=== PATIENT | female | born 1960 | race Two or more races ===

== ENCOUNTER 2017-05-22 09:10 | Inpatient (IN) | payer OTHER ==
[~2017-05-22] VITALS: Ht 157.5 cm; Wt 72.5 kg
[2017-05-22] VITALS (7 sets, daily range): BP systolic 100–132; BP diastolic 34–64
[2017-05-22] MEDS ORDERED: AMLO-512 PO (09:16)
[2017-05-22] MEDS ORDERED: OMEP20 PO (09:16)
[2017-05-22] MEDS ORDERED: DDAV1 PO (09:16)
[2017-05-22] MEDS ORDERED: PRED1 PO (09:16)
[2017-05-22] MEDS ORDERED: LOSA50TA37 PO (09:16)
[2017-05-22] MEDS ORDERED: LEVO88TA4 PO (09:16)
[2017-05-22 10:11] LABS: BILIRUBIN,URINE NEGATIVE (NEGATIVE); GLUCOSE, URINE (UA) NEGATIVE (NEGATIVE); KETONES,URINE NEGATIVE (NEGATIVE); LEUKOCYTE ESTERASE ,URINE NEGATIVE (NEGATIVE); NITRATE,URINE NEGATIVE (NEGATIVE); OCCULT BLOOD,URINE MODERATE (NEGATIVE); PH,URINE 7.5 (5.0-8.0); PROTEIN,URINE POS 1+ (NEGATIVE)
[2017-05-22] MEDS ORDERED: SODIUM CHLORIDE 0.9% 1,000 ML IV ONE ×2 (10:15)
[2017-05-22] MEDS ORDERED: ACETAMINOPHEN 500 MG TABLET PO ONE (10:15)
[2017-05-22 10:21] LABS: BASOPHILS # (AUTO) 0.05 K/uL (0.00-0.20); BASOPHILS % (AUTO) 0.3 % (0.0-2.0); EOSINOPHILS # (AUTO) 0.01 K/uL (0.00-0.70); EOSINOPHILS % (AUTO) 0.04 % (1.0-6.0); HEMATOCRIT 37.1 % (36-46); HEMOGLOBIN 12.8 g/dL (12.0-16.0); LYMPHOCYTES # (AUTO) 2.2 K/uL (1.0-4.8); MEAN CORPUSCULAR HEMOGLOBIN 28.6 pg (26.0-34.0); MEAN CORPUSCULAR HGB CONC 34.4 G/dL (31.0-37.0); MEAN CORPUSCULAR VOLUME 83 fL (80-100); MONOCYTES # (AUTO) 1.2 K/uL (0.1-1.0); MONOCYTES % (AUTO) 5.9 % (2.0-9.0); NEUTROPHILS # (AUTO) 16.2 K/uL (1.8-7.7); NEUTROPHILS % (AUTO) 82.8 % (40.0-70.0); PLATELET COUNT (AUTO) 277 K/uL (150-450); RED BLOOD CELL COUNT(AUTO) 4.46 MIL/uL (4.00-5.20); RED CELL DISTRIBUTION WIDTH 12.9 % (11.5-14.5)
[2017-05-22] MEDS ORDERED: MetroNIDAZOLE 500 MG/NACL 100 ML IV ONE (10:30)
[2017-05-22] MEDS ORDERED: PIPERACILLIN/TAZO 3.375 GM/D5W 50 ML IV ONE (10:30)
[2017-05-22 10:33] LABS: ANION GAP 12 mmol/L (8-16); CALCIUM, TOTAL 8.6 mg/dL (8.8-10.5); CARBON DIOXIDE 26 mmol/L (22-29); CHLORIDE 97 mmol/L (98-107); GLOMERULAR FILTR. RATE CALC > 60 mL/min (>60); GLUCOSE,RANDOM 125 mg/dL (70-110); SODIUM SERUM 135 mmol/L (136-145); UREA NITROGEN, BLOOD 11 mg/dL (7-18)
[2017-05-22 10:39] LABS: ALANINE AMINOTRANSFERASE 22 U/L (12-78); ALBUMIN 3.7 g/dL (3.4-5.0); ALKALINE PHOSPHATASE 90 U/L (46-116); ASPARTATE AMINOTRANSFERASE 13 U/L (15-37); BILIRUBIN,TOTAL 1.6 mg/dL (0.1-1.0); LIPASE 129 U/L (73-393); TOTAL PROTEIN, SERUM 8.5 g/dL (6.4-8.2)
[2017-05-22 10:41] LABS: LACTIC ACID 1.4 mmol/L (0.4-2.0)
[2017-05-22 10:47] LABS: GLUCOSE,POINT OF CARE 121 MG/DL (70-110)
[2017-05-22] MEDS ORDERED: SODIUM CHLORIDE 0.9% 100 ML ONE (10:49)
[2017-05-22] MEDS ORDERED: IOVERSOL 320 MG/ML 100 ML VIAL ONE (10:49)
[2017-05-22 10:56] LABS: APPEARANCE,URINE SLIGHTLY CLOUDY (CLEAR)
[2017-05-22 10:58] LABS: BACTERIA,URINE None Seen /HPF (None Seen); WBC,URINE None Seen /HPF (0-5)
[2017-05-22] MEDS ORDERED: ONDANSETRON HCL 4 MG/2 ML VIAL IVP PRN (13:15)
[2017-05-22] MEDS ORDERED: POTASSIUM CHL 10 MEQ/WATER 50 ML IV PRN (13:15)
[2017-05-22] MEDS ORDERED: LEVO175T9 PO (13:38)
[2017-05-22] MEDS: PIPERACILLIN/TAZO 3.375 GM/D5W 50 ML IV SCH ×2 (15:50→23:34)
[2017-05-22] MEDS: SODIUM CHLORIDE 0.9% 1,000 ML IV SCH (15:51)
[2017-05-22] MEDS: PANTOPRAZOLE SODIUM 40 MG/VIAL IVP SCH (15:54)
[2017-05-22 17:21] LABS: THYROID STIMULATING HORMONE < 0.01 uIU/mL (0.36-3.74)
[2017-05-22] MEDS: POTASSIUM CHLORIDE 20 MEQ ER TABLET PO PRN (18:11)
[2017-05-22] MEDS ORDERED: INFLUENZA VIRUS VACCINE QVS 2017-18 (3YR+)/PF 60 MCG/0.5 ML SYRINGE IM ONE (20:30)
[2017-05-22] MEDS: ACETAMINOPHEN 325 MG TABLET PO PRN (23:24)
[2017-05-22] MEDS: HEPARIN SODIUM,PORCINE 5,000 UNITS/ML VIAL SQ SCH (23:34)
[2017-05-23] VITALS (8 sets, daily range): BP systolic 109–144; BP diastolic 57–70
[2017-05-23] MEDS: SODIUM CHLORIDE 0.9% 1,000 ML IV SCH ×3 (01:42→20:26)
[2017-05-23] MEDS: POTASSIUM CHLORIDE 20 MEQ ER TABLET PO PRN (03:46)
[2017-05-23] MEDS: PIPERACILLIN/TAZO 3.375 GM/D5W 50 ML IV SCH ×4 (04:03→22:56)
[2017-05-23] MEDS: HEPARIN SODIUM,PORCINE 5,000 UNITS/ML VIAL SQ SCH ×2 (08:24→20:26)
[2017-05-23] MEDS: PANTOPRAZOLE SODIUM 40 MG/VIAL IVP SCH (08:24)
[2017-05-23 12:06] LABS: C.DIFF GDH ANTIGEN, Stool Negative (Negative); C.DIFF TOXINS A&B, Stool Negative (Negative)
[2017-05-23 12:33] LABS: GLUCOSE,POINT OF CARE 132 MG/DL (70-110)
[2017-05-23] MEDS ORDERED: SODIUM CHLORIDE 0.9% 250 ML IV ONE (16:37)
[2017-05-23] MEDS: ACETAMINOPHEN 325 MG TABLET PO PRN (20:26)
[2017-05-23 21:44] LABS: INFLUENZA TYPE A NEGATIVE FOR TYPE A (NEGATIVE); INFLUENZA TYPE B NEGATIVE FOR TYPE B (NEGATIVE)
[2017-05-24 04:21] VITALS: BP 120/74
[2017-05-24] MEDS: PIPERACILLIN/TAZO 3.375 GM/D5W 50 ML IV SCH ×4 (04:21→22:56)
[2017-05-24] MEDS: SODIUM CHLORIDE 0.9% 1,000 ML IV SCH ×2 (06:03→22:00)
[2017-05-24 07:07] VITALS: BP 133/71
[2017-05-24 08:10] LABS: BASOPHILS % (AUTO) 0.7 % (0.0-2.0); EOSINOPHILS % (AUTO) 1.9 % (1.0-6.0); HEMATOCRIT 31.8 % (36-46); HEMOGLOBIN 10.9 g/dL (12.0-16.0); LYMPHOCYTES # (AUTO) 2.4 K/uL (1.0-4.8); LYMPHOCYTES % (AUTO) 31.5 % (22.0-44.0); MEAN CORPUSCULAR HEMOGLOBIN 28.5 pg (26.0-34.0); MEAN CORPUSCULAR HGB CONC 34.3 G/dL (31.0-37.0); MEAN CORPUSCULAR VOLUME 83 fL (80-100); MONOCYTES # (AUTO) 0.5 K/uL (0.1-1.0); MONOCYTES % (AUTO) 6.8 % (2.0-9.0); NEUTROPHILS # (AUTO) 4.6 K/uL (1.8-7.7); NEUTROPHILS % (AUTO) 59.1 % (40.0-70.0); PLATELET COUNT (AUTO) 266 K/uL (150-450); RED BLOOD CELL COUNT(AUTO) 3.82 MIL/uL (4.00-5.20); RED CELL DISTRIBUTION WIDTH 13.2 % (11.5-14.5)
[2017-05-24 08:28] LABS: ANION GAP 10 mmol/L (8-16); CALCIUM, TOTAL 8.6 mg/dL (8.8-10.5); CARBON DIOXIDE 26 mmol/L (22-29); CHLORIDE 112 mmol/L (98-107); CREATININE 0.69 mg/dL (0.60-1.30); GLOMERULAR FILTR. RATE CALC > 60 mL/min (>60); GLUCOSE,RANDOM 106 mg/dL (70-110); POTASSIUM 3.2 mmol/L (3.5-5.1); SODIUM SERUM 148 mmol/L (136-145); UREA NITROGEN, BLOOD 5 mg/dL (7-18)
[2017-05-24] MEDS: PANTOPRAZOLE SODIUM 40 MG/VIAL IVP SCH (10:17)
[2017-05-24] MEDS: HEPARIN SODIUM,PORCINE 5,000 UNITS/ML VIAL SQ SCH ×2 (10:18→20:31)
[2017-05-24] MEDS ORDERED: INFLUENZA VIRUS VACCINE QVS 2017-18 (3YR+)/PF 60 MCG/0.5 ML SYRINGE IM ONE (11:30)
[2017-05-24 11:39] VITALS: BP 160/79
[2017-05-24] MEDS: POTASSIUM CHLORIDE 20 MEQ ER TABLET PO PRN (12:58)
[2017-05-24 16:09] VITALS: BP 116/74
[2017-05-24 20:11] VITALS: BP 118/71
[2017-05-24 22:00] VITALS: BP 133/76
[2017-05-25 00:08] VITALS: BP 129/65
[2017-05-25 03:44] VITALS: BP 138/78
[2017-05-25] MEDS: PIPERACILLIN/TAZO 3.375 GM/D5W 50 ML IV SCH ×2 (04:42→10:04)
[2017-05-25 08:26] VITALS: BP 123/74
[2017-05-25] MEDS: PANTOPRAZOLE SODIUM 40 MG/VIAL IVP SCH (09:02)
[2017-05-25] MEDS: HEPARIN SODIUM,PORCINE 5,000 UNITS/ML VIAL SQ SCH (09:02)
[2017-05-25] MEDS: SODIUM CHLORIDE 0.9% 1,000 ML IV SCH (10:06)
[2017-05-25 11:47] VITALS: BP 122/58
[2017-05-25] MEDS ORDERED: SULF1TAB42 PO (14:27)
== END 2017-05-25 17:00 | disposition home or self-care (01) | DRG 720 ==
LOC: EMS 09:11 → ICUN 13:10 → AHU 21:36 → 5S 05-23 14:40 → 6N 05-24 18:50 → 4E 05-24 21:46 → 6N 05-25 08:16
PROVIDERS: ADMIT Internal Medicine; ATTEND Internal Medicine
PROC: 3E0234Z Introduction of Serum, Toxoid and Vaccine into Muscle, Percutaneous Approach (ICD-10-PCS; principal; 2017-05-24)
DX: A41.9 Sepsis, unspecified organism (principal); E87.0 Hyperosmolality and hypernatremia; I10 Essential (primary) hypertension; A04.9 Bacterial intestinal infection, unspecified; K21.9 Gastro-esophageal reflux disease without esophagitis; E87.6 Hypokalemia; E86.0 Dehydration; E28.319 Asymptomatic premature menopause; K52.9 Noninfective gastroenteritis and colitis, unspecified; E03.9 Hypothyroidism, unspecified; Z90.49 Acquired absence of other specified parts of digestive tract; Z86.61 Personal history of infections of the central nervous system; Z98.891 History of uterine scar from previous surgery; Z79.899 Other long term (current) drug therapy; Z23 Encounter for immunization
CPT/HCPCS: 74177; 76830; 76856; 82948; 82962; 83605; 84132; 84443; 86304; 87040; 87324; 87449; 87804; 89055; 90471; 93005; 96365; 96366; 96368; 99291; C9113; J1644; J2543; J3480; J3490; J7030; J7050